=== PATIENT | female | born 1955 | race Caucasian/White ===

== ENCOUNTER 2018-08-31 10:18 | Observation (INO) | payer OTHER ==
[~2018-08-31] VITALS: Ht 154.9 cm; Wt 76.9 kg
--- NOTE | 2018-08-31 11:17 | ED Cough/URI ---
General Stated Complaint: PNEUMONIA Source: patient Exam Limitations: no limitations History of Present Illness Date Seen by Provider: Aug 31, 2018 Time Seen by Provider: 11:13 Initial Comments To ER with concerns of pneumonia. She has been seen here in [place] at [facility] urgent care a few days ago. She reports a one-week history of productive cough shortness of breath. She was initially seen in [place] where her family is from and started on Augmentin and prednisone. She finished the prednisone but continued the Augmentin. She was seen at [facility] urgent care yesterday and the Augmentin was changed to Levaquin. She returned there today because she felt worse. Her oxygen saturation was 93% on room air and upper 80% range with exertion. She does smoke 1 pack of cigarettes per day. Does not have a local physician as she just moved here to [place] from [place] 6 weeks ago. She does have a nebulizer with albuterol at home that she has been using. She does not wear oxygen at home. Timing/Duration: just prior to arrival Severity/Quality: productive cough Associated Symptoms: cough, fever/chills, shortness of breath, wheezing Allergies and Home Medications Allergies Coded Allergies: No Known Drug Allergies (Unverified , 08/31/18) Patient Home Medication List Home Medication List Reviewed: Yes Review of Systems Review of Systems Constitutional: see HPI EENTM: see HPI Respiratory: see HPI, cough, short of breath, wheezing Cardiovascular: no symptoms reported Genitourinary: no symptoms reported Musculoskeletal: no symptoms reported Skin: no symptoms reported Psychiatric/Neurological: No Symptoms Reported Hematologic/Lymphatic: No Symptoms Reported Past Ajlvskj-Rjpdrl-Ugkquf Hx Patient Social History Recent Foreign Travel: No Contact w/Someone Who Travel: No Physical Exam Vital Signs - First Documented 08/31/18 11:08 Temp 98.4 Pulse 104 Resp 20 B/P (MAP) 120/74 (89) Pulse Ox 96 O2 Delivery Room Air Capillary Refill : Height: '" Weight: lbs. oz. kg; BMI Method: General Appearance: WD/WN, no apparent distress Eyes: Bilateral Eye Normal Inspection, Bilateral Eye PERRL, Bilateral Eye EOMI HEENT: PERRL/EOMI, normal ENT inspection Neck: non-tender, full range of motion Respiratory: no respiratory distress, no accessory muscle use, decreased breath sounds, wheezing Cardiovascular: regular rate, rhythm, no murmur Gastrointestinal: normal bowel sounds, non tender, soft Extremities: normal range of motion, non-tender Neurologic/Psychiatric: alert, normal mood/affect, oriented x 3 Skin: normal color, warm/dry Focused Exam Lactate Level 08/31/18 11:20: Lactic Acid Level 1.28 Lactic Acid Level Laboratory Tests Test 08/31/18 11:20 Lactic Acid Level 1.28 MMOL/L (0.50-2.00) Progress/Results/Core Measures Suspected Sepsis SIRS Temperature: Pulse: Respiratory Rate: Laboratory Tests 08/31/18 11:20: White Blood Count 8.5 Blood Pressure / Mean: 08/31/18 11:20: Lactic Acid Level 1.28 Laboratory Tests 08/31/18 11:20: Creatinine 0.81, INR Comment 1.0, Platelet Count 306, Total Bilirubin 0.2 Results/Orders Lab Results Laboratory Tests Test 08/31/18 11:20 Range/Units White Blood Count 8.5 4.3-11.0 10^3/uL Red Blood Count 4.88 4.35-5.85 10^6/uL Hemoglobin 14.7 11.5-16.0 G/DL Hematocrit 45 35-52 % Mean Corpuscular Volume 92 80-99 FL Mean Corpuscular Hemoglobin 30 25-34 PG Mean Corpuscular Hemoglobin Concent 33 32-36 G/DL Red Cell Distribution Width 14.5 10.0-14.5 % Platelet Count 306 130-400 10^3/uL Mean Platelet Volume 9.4 7.4-10.4 FL Neutrophils (%) (Auto) 63 42-75 % Lymphocytes (%) (Auto) 26 12-44 % Monocytes (%) (Auto) 9 0-12 % Eosinophils (%) (Auto) 2 0-10 % Basophils (%) (Auto) 0 0-10 % Neutrophils # (Auto) 5.4 1.8-7.8 X 10^3 Lymphocytes # (Auto) 2.2 1.0-4.0 X 10^3 Monocytes # (Auto) 0.7 0.0-1.0 X 10^3 Eosinophils # (Auto) 0.2 0.0-0.3 10^3/uL Basophils # (Auto) 0.0 0.0-0.1 10^3/uL Prothrombin Time 12.9 12.2-14.7 SEC INR Comment 1.0 0.8-1.4 Activated Partial Thromboplast Time 24 24-35 SEC Sodium Level 140 135-145 MMOL/L Potassium Level 4.1 3.6-5.0 MMOL/L Chloride Level 106 98-107 MMOL/L Carbon Dioxide Level 25 21-32 MMOL/L Anion Gap 9 5-14 MMOL/L Blood Urea Nitrogen 16 7-18 MG/DL Creatinine 0.81 0.60-1.30 MG/DL Estimat Glomerular Filtration Rate > 60 BUN/Creatinine Ratio 20 Glucose Level 80 70-105 MG/DL Lactic Acid Level 1.28 0.50-2.00 MMOL/L Calcium Level 9.7 8.5-10.1 MG/DL Corrected Calcium 9.5 8.5-10.1 MG/DL Total Bilirubin 0.2 0.1-1.0 MG/DL Aspartate Amino Transf (AST/SGOT) 16 5-34 U/L Alanine Aminotransferase (ALT/SGPT) 18 0-55 U/L Alkaline Phosphatase 89 40-136 U/L Total Protein 6.9 6.4-8.2 GM/DL Albumin 4.2 3.2-4.5 GM/DL My Orders Orders - PAYAL RENEE SECOND OFFICER Albuterol/Ipra Inhalation Soln (Duoneb I (08/31/18 11:45) Methylprednisolone Sod Succ (Solu-Medrol (08/31/18 11:45) Svn Small Volume Nebulizer (08/31/18 11:37) Albuterol/Ipra Inhalation Soln (Duoneb I (08/31/18 11:36) Arterial Blood Gas (08/31/18 11:57) Medications Given in ED Current Medications Medications Dose Ordered Sig/Anmol Route Start Time Stop Time Status Last Admin Dose Admin Albuterol/ Ipratropium 3 ml ONCE ONCE INH 08/31/18 11:45 08/31/18 11:46 DC 08/31/18 11:42 3 ML Methylprednisolone Sodium Succinate 125 mg ONCE ONCE IVP 08/31/18 11:45 08/31/18 11:46 DC 08/31/18 11:49 125 MG Vital Signs/I&O 08/31/18 11:08 Temp 98.4 Pulse 104 Resp 20 B/P (MAP) 120/74 (89) Pulse Ox 96 O2 Delivery Room Air Capillary Refill : Departure Communication (Admissions) 1211-oxygen saturation dropped to 86-87% on room air after the DuoNeb treatment. 2 L of supplemental oxygen was applied. Impression Primary Impression: COPD exacerbation Disposition: ADMITTED INPATIENT Condition: Stable Admissions Decision to Admit Reason: Admit from ER (General) Decision to Admit/Date: Aug 31, 2018 Time/Decision to Admit Time: 12:11 Departure-Patient Inst. Referrals: NO,LOCAL PHYSICIAN (PCP/Family) Primary Care Physician PAYAL RENEE APRN Aug 31, 2018 11:17
[2018-08-31 11:31] LABS: BASOPHILS % (AUTO) 0 % (0-10); EOSINOPHILS # (AUTO) 0.2 10^3/uL (0.0-0.3); EOSINOPHILS % (AUTO) 2 % (0-10); HEMATOCRIT 45 % (35-52); HEMOGLOBIN 14.7 G/DL (11.5-16.0); LYMPHOCYTES # (AUTO) 2.2 X 10^3 (1.0-4.0); LYMPHOCYTES % (AUTO) 26 % (12-44); MEAN CORPUSCULAR HEMOGLOBIN 30 PG (25-34); MEAN CORPUSCULAR HGB CONC 33 G/DL (32-36); MEAN CORPUSCULAR VOLUME 92 FL (80-99); MEAN PLATELET VOLUME 9.4 FL (7.4-10.4); MONOCYTES # (AUTO) 0.7 X 10^3 (0.0-1.0); MONOCYTES % (AUTO) 9 % (0-12); NEUTROPHILS # (AUTO) 5.4 X 10^3 (1.8-7.8); NEUTROPHILS % (AUTO) 63 % (42-75); PLATELET COUNT 306 10^3/uL (130-400); RED BLOOD COUNT 4.88 10^6/uL (4.35-5.85); RED CELL DISTRIBUTION WIDTH 14.5 % (10.0-14.5); WHITE BLOOD COUNT 8.5 10^3/uL (4.3-11.0)
[2018-08-31] MEDS ORDERED: RT-ALBUTEROL/IPRATROPIUM 3 ML (DUONEB) VIAL ONE (11:36)
[2018-08-31 11:40] LABS: PROTHROMBIN TIME PATIENT 12.9 SEC (12.2-14.7)
[2018-08-31] MEDS ORDERED: LEVO50TA6 PO (11:45)
[2018-08-31] MEDS ORDERED: methylPREDNISolone 125 MG (Solu-MEDROL) VIAL IVP ONE (11:45)
[2018-08-31] MEDS ORDERED: RT-ALBUTEROL/IPRATROPIUM 3 ML (DUONEB) VIAL INH ONE (11:45)
[2018-08-31 11:46] LABS: ALANINE AMINOTRANSFERASE 18 U/L (0-55); ALBUMIN 4.2 GM/DL (3.2-4.5); ALKALINE PHOSPHATASE 89 U/L (40-136); BILIRUBIN,TOTAL 0.2 MG/DL (0.1-1.0); BUN/CREATININE RATIO 20; CALCIUM 9.7 MG/DL (8.5-10.1); CARBON DIOXIDE 25 MMOL/L (21-32); CHLORIDE 106 MMOL/L (98-107); CREATININE SERUM 0.81 MG/DL (0.60-1.30); GFR ESTIMATED > 60; GLUCOSE 80 MG/DL (70-105); POTASSIUM 4.1 MMOL/L (3.6-5.0); SODIUM 140 MMOL/L (135-145); TOTAL PROTEIN 6.9 GM/DL (6.4-8.2)
--- NOTE | 2018-08-31 11:49 | Diagnostic Imaging Report ---
INDICATION: Cough for one week. TIME OF EXAM: 12:03 p.m. No prior studies are available for comparison. The heart size is normal. The pulmonary vascularity is unremarkable. The lungs are clear. No infiltrate, effusion or pneumothorax is detected. IMPRESSION: No acute cardiopulmonary process is detected. Dictated by: Dictated on workstation # [id number]
[2018-08-31 12:31] LABS: ABG BASE EXCESS 1.1 MMOL/L (-2.5-2.5); ABG OXYGEN SATURATION 94 % (94-100); ABG PCO2 36 MMHG (35-45); ABG PH 7.45 (7.37-7.43); ABG PO2 65 MMHG (79-93); ABG TCO2 25.8 MMOL/L (21.0-31.0)
[2018-08-31 12:32] LABS: ALLENS TEST YES-POS
[2018-08-31 12:33] LABS: INSPIRED O2 2; PATIENT TEMP 98.4; VENTILATOR NO
[2018-08-31 13:25] LABS: BILIRUBIN,URINE NEGATIVE (NEGATIVE); CLARITY,URINE CLEAR; COLOR,URINE YELLOW; GLUCOSE, URINE (UA) NEGATIVE (NEGATIVE); KETONES,URINE NEGATIVE (NEGATIVE); LEUKOCYTE ESTERASE ,URINE NEGATIVE (NEGATIVE); NITRITE,URINE NEGATIVE (NEGATIVE); PH,URINE 6.5 (5-9); PROTEIN,URINE NEGATIVE (NEGATIVE); UROBILINOGEN,URINE NORMAL (NORMAL)
[2018-08-31 13:40] LABS: BACTERIA,URINE NEGATIVE /HPF; SQUAMOUS EPITHELIAL CELL,UR RARE /HPF
[2018-08-31] MEDS ORDERED: IOHEXOL 350 MG/ML 150 ML (OMNIPAQUE 350) VIAL IV ONE (13:45)
[2018-08-31] MEDS ORDERED: RECEIVED CONTRAST (Hold Metformin) IV SCH (13:45)
[2018-08-31] MEDS ORDERED: NS 100 ML (IVPB) BAG IV ONE (13:45)
--- NOTE | 2018-08-31 14:07 | Diagnostic Imaging Report ---
PROCEDURE: CT angiography of the chest with contrast. TECHNIQUE: Multiple contiguous axial images were obtained through the chest after uneventful bolus administration of intravenous contrast. 2D reconstructed CTA MIP acquisitions were also performed. INDICATION: Pneumonia and atrial flutter. No prior studies are available for comparison. The study is somewhat compromised due to suboptimal pulmonary arterial opacification. No definite filling defects within central pulmonary arteries are seen. Aorta is unremarkable. No pericardial or pleural fluid is detected. Pulmonary parenchymal evaluation does show mild centrilobular emphysematous changes in the upper lung lynn. No parenchymal mass, infiltrate or nodule is identified. The upper abdomen is unremarkable. IMPRESSION: 1. Suboptimal study but no central pulmonary emboli are detected. 2. Centrilobular emphysematous changes. No acute feature is detected. Dictated by: Dictated on workstation # [id number]
--- NOTE | 2018-08-31 14:45 | NUR ---
RANDY CISSE admitted to room 419-1, with an admitting diagnosis of COPD EXACERBATION, on 08/31/18 from ED via WHEELCHAIR, accompanied by ED STAFF. RANDY CISSE introduced to surroundings, call light, bed controls, phone, TV, temperature control, lights, meal times, smoking policy, visitor policy, side rail policy, bathrooms and showers. Patient Rights given to patient in the handbook. RANDY CISSE verbalizes understanding that [facility] is not responsible for the loss or damage to any personal effects or valuables that are kept in the patients possession during their hospitalization. The following Patient Care Plans were discussed with the PATIENT: Discharge Planning, COPD and KNOWLEDGE DEFICIT. RANDY CISSE verbalizes understanding of Interdisciplinary Patient Education. Patient and/or family were informed about the Rapid Response Team and its purpose.
[2018-08-31] MEDS ORDERED: CATHETER FLUSH 10 ML SYR IV PRN (15:00)
[2018-08-31] MEDS ORDERED: LEVO25TA5 PO (15:09)
[2018-08-31] MEDS ORDERED: ALBU2.5V4 NEB (15:09)
[2018-08-31] MEDS ORDERED: DILT120T3 PO (15:09)
[2018-08-31] MEDS ORDERED: LISI10TA2 PO (15:09)
[2018-08-31] MEDS ORDERED: LEVO750T9 PO (15:09)
--- NOTE | 2018-08-31 15:14 | NUR ---
CALLED MANUEL FOR A LIST OF RECENTLY FILLED MEDICATIONS. PATIENT ALSO HAD A LIST WITH HER AND VERIFIED HOW SHE TAKES EACH MEDICATION. [facility] FILLED: 08-30-18 ALBUTEROL 0.083% QID PRN 08-30-18 LEVAQUIN 750MG DAILY X 7 DAYS 08-11-18 LISINOPRIL 10MG DAILY 08-11-18 DILTIAZEM 120MG DAILY 08-11-18 LEVOTHYROXINE 25MCG DAILY
[2018-08-31] MEDS: NICOTINE 21 MG (NICODERM) PATCH TD SCH (15:34)
[2018-08-31 16:05] VITALS: BP 130/57
[2018-08-31 16:19] VITALS: BP 130/57
[2018-08-31] MEDS ORDERED: FLU QUADRIvalent (5+ YOA) 2018-2019 (AFLURIA) 0.5 ML IM ONE (16:30)
[2018-08-31] MEDS ORDERED: RT-ALBUTEROL SULF 2.5 MG/3 ML PRE-MIX VIAL INH PRN (16:30)
--- NOTE | 2018-08-31 17:53 | History & Physical-Hospitalist ---
History of Present Illness HPI/Chief Complaint CC: Wheezing HPI: This is a 62-year-old white female the chest moved from [place] who presented to urgent care with findings of fever wheezing and hypoxia and failed 2 prior urgent care visits in the past one week. She was sent to the ER due to sepsis risk was evaluated to have labs normal chest x-ray negative for infiltrate but severe wheezing consistent with exacerbation of COPD in need of IV steroids. Patient denies any productive cough and overall has never had any lung problems. She works at [employer] Source: patient, RN/MD Exam Limitations: no limitations Date Seen 08/31/18 Time Seen by a Provider: 12:30 Attending Physician Lashawn Weinberg DO PCP No,Local Physician Referring Physician Date of Admission Aug 31, 2018 at 14:20 Home Medications & Allergies Home Medications Reviewed patient Home Medication Reconciliation performed by pharmacy medication reconciliations specimen technician and/or nursing. Patients Allergies have been reviewed. Allergies Allergies Coded Allergies No Known Drug Allergies (Joixpwbtxx23/27/18) Past Zvvnsdo-Ocntka-Rmnode Hx Past Med/Social Hx: Reviewed Nursing Past Med/Soc Hx, Reviewed and Corrections made Patient Social History Employed/Student: employed Alcohol Use: Rarely Uses Number of Drinks Today: 0 Recreational Drug Use: No Smoking Status: Current Everyday Smoker Type Used: Cigarettes Physical Abuse Screen: No Sexual Abuse: No Recent Foreign Travel: No Contact w/other who traveled: No Recent Hopitalizations: No Recent Infectious Disease Expo: No Immunizations Up To Date Tetanus Booster (TDap): Unknown Pediatric: Yes Seasonal Allergies Seasonal Allergies: No Past Medical History Surgeries: Adenoidectomy, Section, Hysterectomy, Orthopedic, Tonsillectomy Respiratory: COPD Cardiac: Hypertension Hysterectomy Endocrine: Hypothyroidsim History of Blood Disorders: No Family History Cardiovascular disease PATERNAL GRANDMOTHER Congenital heart disease MATERNAL GRANDFATHER Coronary thrombosis 19 MOTHER (LEG) Myocardial infarction PATERNAL GRANDMOTHER Neoplasm 19 FATHER (ALL OVER-STARTED IN LUNGS) 19 MOTHER (LUNGS TO BRAIN) Review of Systems Constitutional: see HPI, weakness EENTM: no symptoms reported Respiratory: cough, dyspnea on exertion, wheezing Cardiovascular: no symptoms reported Gastrointestinal: no symptoms reported Genitourinary: no symptoms reported Musculoskeletal: no symptoms reported Skin: no symptoms reported Psychiatric/Neurological: No Symptoms Reported All Other Systems Reviewed Negative Unless Noted: Yes Physical Exam Physical Exam Vital Signs Vital Signs - First Documented 08/31/18 08/31/18 09/01/18 11:08 16:19 10:16 Temp 98.4 Pulse 104 Resp 20 B/P (MAP) 120/74 (89) Pulse Ox 96 O2 Delivery Room Air O2 Flow Rate 3.00 FiO2 21 Capillary Refill : Less Than 3 Seconds Height, Weight, BMI Height: 5'1.00" Weight: 169lbs. 8.6oz. 76.162661wr; 32.0 BMI Method:Stated General Appearance: No Apparent Distress, WD/WN, Chronically ill Eyes: Bilateral Eye Normal Inspection, Bilateral Eye PERRL HEENT: PERRL/EOMI, Normal ENT Inspection, Pharynx Normal Neck: Full Range of Motion, Normal Inspection, Non Tender, Supple, Carotid Bruit Respiratory: Chest Non Tender, Accessory Muscle Use, Decreased Breath Sounds, Respiratory Distress, Wheezing Cardiovascular: Regular Rate, Rhythm, No Edema, No Gallop, No JVD, No Murmur, Normal Peripheral Pulses Gastrointestinal: Normal Bowel Sounds, No Organomegaly, No Pulsatile Mass, Non Tender, Soft Back: Normal Inspection, No CVA Tenderness, No Vertebral Tenderness Extremity: Normal Capillary Refill, Normal Inspection, Normal Range of Motion, Non Tender, No Calf Tenderness, No Pedal Edema Neurologic/Psychiatric: Alert, Oriented x3, No Motor/Sensory Deficits, Normal Mood/Affect Skin: Normal Color, Warm/Dry Lymphatic: No Adenopathy Results Results/Procedures Labs Laboratory Tests 08/31/18 11:20 Patient resulted labs reviewed. Assessment/Plan Admission Diagnosis Assessment: Respiratory insufficiency failed oral antibiotics and oral steroids with injections of steroids 3 New-onset COPD Long-term current smoker Hypoxia Plan: IV steroids Nebulizer treatments Home oxygen Monitor closely Admission Status: Observation Diagnosis/Problems Diagnosis/Problems (1) COPD exacerbation Status: Acute (2) Bronchitis, acute Status: Acute Qualifiers: Bronchitis organism: unspecified organism Qualified Codes: J20.9 - Acute bronchitis, unspecified (3) RESPIRATORY FAILURE, UNSP, UNSP W HYPOXIA OR HYPERCAPNIA Status: Acute (4) Smoker Status: Chronic Clinical Quality Measures DVT/VTE Risk/Contraindication: Risk Factor Score Per Nursin RFS Level Per Nursing on Admit: 4+=Very High LASHAWN WEINBERG DO Aug 31, 2018 17:53
[2018-08-31] MEDS ORDERED: ALPRAZolam 0.25 MG (XANAX) TAB PO PRN (18:00)
[2018-08-31] MEDS ORDERED: ACETAMINOPHEN 500 MG TAB (TYLENOL) PO PRN (18:00)
[2018-08-31] MEDS ORDERED: ONDANSETRON 4 MG/2 ML (SDV) Z0FRAN IVP PRN (18:00)
[2018-08-31] MEDS ORDERED: HYDROcodone/APAP 5 MG/325 MG (LORTAB) TAB PO PRN (18:00)
[2018-08-31] MEDS ORDERED: diphenhydrAMINE 25 MG TAB (BENADRYL) PO PRN (18:00)
[2018-08-31] MEDS ORDERED: DOCUSATE SODIUM 100 MG (COLACE) CAP PO PRN (18:00)
[2018-08-31] MEDS ORDERED: CALCIUM CARBONATE 500 MG (TUMS) TAB.CHEW PO PRN (18:00)
[2018-08-31 19:39] VITALS: BP 132/62
[2018-08-31] MEDS: methylPREDNISolone 125 MG (Solu-MEDROL) VIAL IV SCH (20:11)
[2018-08-31] MEDS: CATHETER FLUSH 10 ML SYR IV SCH (20:12)
[2018-08-31] MEDS: RT-BUDESONIDE NEBS 0.5 MG/2ML (PULMICORT) AMP INH SCH (20:19)
[2018-08-31] MEDS: RT-ALBUTEROL SULF 2.5 MG/3 ML PRE-MIX VIAL INH SCH (20:19)
[2018-09-01 00:11] VITALS: BP 141/69
[2018-09-01] MEDS: RT-ALBUTEROL SULF 2.5 MG/3 ML PRE-MIX VIAL INH SCH ×4 (03:18→19:38)
[2018-09-01 04:07] VITALS: BP 129/65
[2018-09-01] MEDS: methylPREDNISolone 125 MG (Solu-MEDROL) VIAL IV SCH ×3 (05:40→21:26)
[2018-09-01] MEDS: CATHETER FLUSH 10 ML SYR IV SCH ×3 (05:40→21:26)
[2018-09-01 08:00] VITALS: BP 118/68
[2018-09-01] MEDS: NICOTINE 21 MG (NICODERM) PATCH TD SCH (08:18)
[2018-09-01] MEDS: NICOTINE PATCH REMOVAL TP SCH (08:19)
--- NOTE | 2018-09-01 10:08 | NUR ---
SPO2 87% ON ROOM AIR AT REST. PLACED PT ON O2 @ 3 LPM. SPO2 INCREASED TO 91%.
[2018-09-01] MEDS: RT-BUDESONIDE NEBS 0.5 MG/2ML (PULMICORT) AMP INH SCH ×2 (10:14→19:39)
--- NOTE | 2018-09-01 10:51 | Progress Note-Hospitalist ---
Subjective HPI/CC On Admission Date Seen by Provider: Sep 01, 2018 Time Seen by Provider: 10:00 Subjective/Events-last exam Patient doing much better Needs 3 L of home oxygen set up Nebulizer treatments are helping IV steroids have been tolerated well Smoking cessation discussed Review of Systems Pulmonary: Dyspnea Focused Exam Lactate Level 08/31/18 11:20: Lactic Acid Level 1.28 Objective Exam Vital Signs Vital Signs Date Time Temp Pulse Resp B/P (MAP) Pulse Ox O2 Delivery O2 Flow Rate FiO2 09/01/18 10:16 96 Nasal Cannula 3.00 09/01/18 08:00 97.3 105 18 118/68 (85) 08/31/18 16:19 21 Capillary Refill : Less Than 3 Seconds General Appearance: No Apparent Distress, WD/WN, Chronically ill Respiratory: Chest Non Tender, Normal Breath Sounds, No Accessory Muscle Use, No Respiratory Distress, Crackles, Decreased Breath Sounds, Wheezing Cardiovascular: Regular Rate, Rhythm, No Edema, No Gallop, No JVD, No Murmur, Normal Peripheral Pulses Neurologic/Psychiatric: Alert, Oriented x3, No Motor/Sensory Deficits, Normal Mood/Affect Results/Procedures Lab Patient resulted labs reviewed. Assessment/Plan Assessment and Plan Assess & Plan/Chief Complaint Assessment: Respiratory insufficiency now resolved Needs home oxygen Hypoxia Bacterial bronchitis Hypertension Hypothyroidism Current smoker Plan: Set up home oxygen Nebulizer treatments Smoking cessation Reconciled and restarted most home meds Diagnosis/Problems Diagnosis/Problems (1) RESPIRATORY FAILURE, UNSP, UNSP W HYPOXIA OR HYPERCAPNIA Status: Acute (2) Bronchitis, acute Status: Acute Qualifiers: Bronchitis organism: unspecified organism Qualified Codes: J20.9 - Acute bronchitis, unspecified (3) Hypertension Status: Chronic Qualifiers: Hypertension type: essential hypertension Qualified Codes: I10 - Essential (primary) hypertension (4) Hypothyroidism Status: Chronic Qualifiers: Hypothyroidism type: acquired Qualified Codes: E03.9 - Hypothyroidism, unspecified (5) COPD exacerbation Status: Acute (6) Smoker Status: Chronic Clinical Quality Measures DVT/VTE Risk/Contraindication: Risk Factor Score Per Nursin RFS Level Per Nursing on Admit: 4+=Very High TANNER MARAVILLA DO Sep 01, 2018 10:51
[2018-09-01] MEDS: LEVOFLOXACIN 750 MG TAB (LEVAQUIN) PO SCH (10:54)
--- NOTE | 2018-09-01 11:00 | NUR ---
DISCHARGE PLANNING: Patient will likely discharge to home tomorrow. She needs continuous oxygen at 3LPM for home use. Choice form presented to patient for selection of medical equipment companies. She chose [facility]. Choice form signed et placed on chart. Await finalized orders from doctor et then will fax to [facility]. Patient reports that she would also be interested in being involved in our Pulmonary Rehabilitation program. F/U with Dr. Weinberg about patient's voiced interest. No further interventions noted at this time. Addendum: 09/01/18 at 1131 by THOMPSON DENT RN Orders faxed to [facility].
--- NOTE | 2018-09-01 11:53 | NUR ---
CM DISCHARGE PLANNING: Patient will need oxygen delivered to her room tomorrow. The operations support coordinatorbanquet set up person for Tuesday at [facility] is Hardy Givens cell # [phone]. This information was passed on to the nurse Javier ALVARADO et was also written on the patient's red discharge packet. The primary care nurse will need to call tomorrow to have it delivered to her room. No further interventions noted at this time.
[2018-09-01 12:00] VITALS: BP 111/66
[2018-09-01] MEDS ORDERED: DILTIAZEM 120 MG (CARDIZEM CD) CAP PO NR (12:15)
[2018-09-01] MEDS ORDERED: LEVOTHYROXINE 25 MCG (LEVOTHROID) TAB PO NR (12:15)
[2018-09-01] MEDS ORDERED: lisINopril 10 MG (PRINIVIL) TABLET PO NR (12:15)
--- NOTE | 2018-09-01 15:00 | NUR ---
PT LEFT FLOOR WITHOUT OXYGEN. TX NOT GIVEN.
--- NOTE | 2018-09-01 15:18 | NUR ---
NOTE THE COMPUTER SCANNER WILL NOT HOLD A CHARGE Addendum: 09/01/18 at 1527 by FRANSISCO SUN RN PLEASE NOTE THAT PLAN IS TO DC TO HOME TOMORROW AND SHE WILL NEED HER PORTABLE O2 TO BE DELIVERED TO FLOOR PRIOR TO HER GOING HOME -- STAFF NEEDS TO MARCELINO BRAY [phone] FOR HIM TO DELIVER THE O2
[2018-09-01 16:29] VITALS: BP 127/76
[2018-09-01 20:00] VITALS: BP 108/56
[2018-09-02] VITALS: BP_SYST 122; BP_SYST 131; BP_DIAS 58; BP_DIAS 66
[2018-09-02] MEDS: RT-ALBUTEROL SULF 2.5 MG/3 ML PRE-MIX VIAL INH SCH ×2 (02:18→10:23)
[2018-09-02 04:00] VITALS: BP 122/58
[2018-09-02] MEDS ORDERED: LEVOTHYROXINE 25 MCG (LEVOTHROID) TAB PO SCH (06:30)
[2018-09-02] MEDS: methylPREDNISolone 125 MG (Solu-MEDROL) VIAL IV SCH (06:37)
[2018-09-02] MEDS: CATHETER FLUSH 10 ML SYR IV SCH (06:37)
[2018-09-02 08:00] VITALS: BP 108/59
[2018-09-02] MEDS ORDERED: lisINopril 10 MG (PRINIVIL) TABLET PO SCH (09:00)
[2018-09-02] MEDS ORDERED: DILTIAZEM 120 MG (CARDIZEM CD) CAP PO SCH (09:00)
[2018-09-02] MEDS: NICOTINE PATCH REMOVAL TP SCH (09:23)
[2018-09-02] MEDS: NICOTINE 21 MG (NICODERM) PATCH TD SCH (09:24)
[2018-09-02] MEDS: LEVOFLOXACIN 750 MG TAB (LEVAQUIN) PO SCH (09:24)
[2018-09-02] MEDS: RT-BUDESONIDE NEBS 0.5 MG/2ML (PULMICORT) AMP INH SCH (10:22)
[2018-09-02 12:00] VITALS: BP 113/67
[2018-09-02] MEDS ORDERED: PRED10TA22 PO (12:02)
--- NOTE | 2018-09-02 12:04 | Discharge Summary-Hospitalist ---
Diagnosis/Chief Complaint Date of Admission Aug 31, 2018 at 14:20 Date of Discharge Discharge Date: Sep 02, 2018 Admission Diagnosis Assessment: Respiratory insufficiency failed oral antibiotics and oral steroids with injections of steroids 3 New-onset COPD Long-term current smoker Hypoxia Plan: IV steroids Nebulizer treatments Home oxygen Monitor closely Discharge Diagnosis (1) RESPIRATORY FAILURE, UNSP, UNSP W HYPOXIA OR HYPERCAPNIA Status: Resolved (2) Bronchitis, acute Status: Acute (3) Hypertension Status: Chronic (4) Hypothyroidism Status: Chronic (5) COPD exacerbation Status: Acute (6) Smoker Status: Chronic Discharge Summary Discharge Physical Exam Allergies: Coded Allergies: No Known Drug Allergies (Unverified , 08/31/18) Vitals & I&Os Vital Signs Date Time Temp Pulse Resp B/P (MAP) Pulse Ox O2 Delivery O2 Flow Rate FiO2 09/02/18 12:00 96.9 86 18 113/67 (82) 93 Room Air 09/02/18 10:23 3.00 08/31/18 16:19 21 General Appearance: No Apparent Distress, WD/WN, Chronically ill Respiratory: Chest Non Tender, Lungs Clear, Normal Breath Sounds, No Accessory Muscle Use, No Respiratory Distress Cardiovascular: Regular Rate, Rhythm, No Edema, No Gallop, No JVD, No Murmur, Normal Peripheral Pulses Neurologic/Psychiatric: Alert, Oriented x3, No Motor/Sensory Deficits, Normal Mood/Affect Hospital Course Hospital course: Agent had a brief hospital stay was placed on IV steroids in addition to nebulizer treatments and pulmonary rehabilitation with home O2 evaluation which she met criteria for. Discharge orders were ranged once she felt well enough and wheezing resolved and smoking cessation was counseled aggressively. Pulmonary rehabilitation will be set up as an outpatient. She will find her own primary care provider to be released to go back to work. Labs (last 24 hrs) Microbiology 08/31/18 Blood Culture - Preliminary, Resulted No growth 08/31/18 Urine Culture - Final, Complete NO GROWTH Patient resulted labs reviewed. Discussion & Recommendations Discharge Planning: <30 minutes discharge planning Discharge Home Medications: Active Scripts Active Prednisone 10 Mg Tab.ds.pk 10 Mg PO DAILY Take 6 tabs(60mg)daily,decrease by 1 tab(10MG)daily. Reported Albuterol Sulfate 2.5 Mg/3 Ml Vial.neb 2.5 Mg NEB QID PRN Levaquin (Levofloxacin) 750 Mg Tablet 750 Mg PO DAILY 7 Days 7 DAY SUPPLY FILLED 08-30-18 Lisinopril 10 Mg Tablet 10 Mg PO DAILY Diltiazem HCl 120 Mg Tablet 120 Mg PO DAILY Levothyroxine Sodium 25 Mcg Tablet 25 Mcg PO DAILY Instructions to patient/family Please see electronic discharge instructions given to patient. Clinical Quality Measures DVT/VTE Risk/Contraindication: Risk Factor Score Per Nursin RFS Level Per Nursing on Admit: 4+=Very High Problem Qualifiers (1) Bronchitis, acute: Bronchitis organism: unspecified organism Qualified Codes: J20.9 - Acute bronchitis, unspecified (2) Hypertension: Hypertension type: essential hypertension Qualified Codes: I10 - Essential ( primary) hypertension (3) Hypothyroidism: Hypothyroidism type: acquired Qualified Codes: E03.9 - Hypothyroidism, unspecified TANNER MARAVILLA DO Sep 02, 2018 12:04
--- NOTE | 2018-09-02 13:00 | NUR ---
RANDY CISSE demonstrates understanding of discharge instructions and accurately returns instructions upon questioning. Copy of Post-Discharge Instructions given to . RANDY CISSE is able to manage continuing needs after discharge. [facility] medical equipment brought portable home oxygen, plans for home oxygen to follow. Patients belongings returned to patient. [facility]- on 09/02/18 at 1300. RANDY CISSE left floor via wheelchair to private automobile, accompanied by staff.
== END 2018-09-02 12:02 | disposition home or self-care (01) ==
LOC: ER 10:20 → EDBD 10:20 → UNDOADMOB 14:20 → 4TH 14:20 → UNDODISOB 09-02 12:55
PROVIDERS: ADMIT Internal Medicine; ATTEND Internal Medicine
DX: J96.91 Respiratory failure, unspecified with hypoxia (principal); J44.1 Chronic obstructive pulmonary disease with (acute) exacerbation; J20.9 Acute bronchitis, unspecified; E03.9 Hypothyroidism, unspecified; F17.210 Nicotine dependence, cigarettes, uncomplicated; Z79.899 Other long term (current) drug therapy; Z79.52 Long term (current) use of systemic steroids
CPT/HCPCS: 36415; 36600; 71046; 71275; 80053; 81000; 82805; 83605; 85025; 85610; 85730; 87040; 87088; 94640; 94760; 96374; G0378

== ENCOUNTER 2018-09-18 12:41 | Outpatient (RCR) | payer OTHER ==
[~2018-09-18 12:41] MED LIST: ALBU2.5V4 NEB; DILT120T3 PO; LEVO25TA5 PO; LEVO50TA6 PO; LEVO750T9 PO; LISI10TA2 PO; PRED10TA22 PO
--- NOTE | 2018-09-18 13:36 | Pulmonary Rehab Eval/Txmt Plan ---
Pulmonary Rehab Initial Eval Information Paper Evaluation Completed: Yes Pulmonary Rehab Treatment Plan Treatment P Treatment Periord: Initial Diagnosis Date: Sep 18, 2018 Barriers to Learning Barriers: None Assessment/Problems Exercise: Deconditioning, No Regular Exercise, Sedentary Type: AEROBIC Frequency: 2 X'S WEEK Duration: 1 HR CLASS; EXERCISE PER PT'S TOLERANCE Barriers to Exercise: HIP PAIN Initial MET Level: 2 Aerobic Exercise/Goals Freq: time per week minus PA: 2 MET Level=: 2 Type: Arm Ergometry, Bike, Scifi/Nustep, Treadmill FRANK HERNANDEZ DO Sep 18, 2018 13:35
== END 2018-12-17 | disposition home or self-care (01) ==
LOC: PULM 12:41
PROVIDERS: ATTEND Internal Medicine
DX: J96.90 Respiratory failure, unspecified, unspecified whether with hypoxia or hypercapnia (principal)
CPT/HCPCS: 99211